=== PATIENT | male | born 1940 | race Caucasian/White ===

== ENCOUNTER 2017-05-06 09:46 | Emergency (ER) | payer MEDICARE ==
[~2017-05-06] VITALS: Ht 177.8 cm; Wt 96.0 kg
[2017-05-06] MEDS ORDERED: GADODIAMIDE PF 287 MG/ML 20 ML VIAL (for RAD MRI) IVCONTRAST ONE (09:47)
[2017-05-06 09:48] VITALS: BP 111/61; PULSE 78; RESP 16; TEMP 98.3; O2SAT 97
[2017-05-06] MEDS ORDERED: ROSU10 PO (10:07)
[2017-05-06] MEDS ORDERED: METO25TA3 PO (10:07)
[2017-05-06] MEDS ORDERED: zyrtec PO (10:07)
[2017-05-06] MEDS ORDERED: SODIUM CHLOR 0.9% 1000 ML INJ 1,000 ML IV SCH (10:45)
[2017-05-06 10:54] LABS: AUTOMATED NEUTROPHIL # 13.3 TH/MM3 (1.8-7.7); BASOPHIL % 0.1 % (0.0-2.0); EOSINOPHIL # 0.1 TH/MM3 (0-0.4); EOSINOPHIL % 0.4 % (0.0-4.0); HEMATOCRIT 46.2 % (39.0-51.0); LYMPH % 2.8 % (9.0-44.0); LYMPHOCYTE # 0.4 TH/MM3 (1.0-4.8); MEAN CELL VOLUME 98.1 FL (80.0-100.0); MEAN CORPUSCULAR HEMOGLOBIN 33.9 PG (27.0-34.0); MEAN CORPUSCULAR HGB CONC 34.5 % (32.0-36.0); MONO % 6.5 % (0.0-8.0); NEUT % 90.2 % (16.0-70.0); PLATELET COUNT 79 TH/MM3 (150-450); RED BLOOD COUNT 4.71 MIL/MM3 (4.50-5.90); RED CELL DISTRIBUTION WIDTH 12.5 % (11.6-17.2); WHITE BLOOD COUNT 14.7 TH/MM3 (4.0-11.0)
[2017-05-06 10:55] LABS: HEMO FLAGS AUTO DIFF
[2017-05-06 11:07] LABS: BLOOD, URINE SMALL (NEG); GLUCOSE,URINE NEG (NEG); KETONE, URINE 10 mg/dL (NEG); MUCUS URINE FEW /lpf (OCC); NITRITE,URINE NEG (NEG); URINE COLOR YELLOW (YELLW/STRAW)
[2017-05-06 11:08] LABS: COMMENT (UR) CULTURE INDICATED; CULTURE IF INDICATED CULTURE INDICATED
[2017-05-06 11:18] LABS: BICARBONATE 20.3 MEQ/L (21.0-32.0); POTASSIUM 4.1 MEQ/L (3.5-5.1)
--- NOTE | 2017-05-06 11:22 | PD ---
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 The patient states he was feeling fine yesterday morning and had a heavy Thanksgiving meal. He states he urinated throughout the night several times. He states this morning he woke up severely weak. Denies any pain anywhere. He denies any shortness of breath and sitting. He does state that when he gets up now he becomes very winded. There is no abdominal pain and there is no diarrhea. He has no dysuria just urinary frequency. PFSH Past Medical History Cancer: Yes (head neck and lung) High Cholesterol: Yes Hypertension: Yes Myocardial Infarction: Yes Influenza Vaccination: No Past Surgical History Tonsillectomy: Yes Other Surgery: Yes (head and neck for cancer) Social History Alcohol Use: Yes (weekly) Tobacco Use: No Substance Use: No Allergies-Medications (Allergen,Severity, Reaction): Coded Allergies: atorvastatin (Verified Allergy, Intermediate, neck itching, 05/06/17) bacitracin (Verified Allergy, Intermediate, rash, 05/06/17) neomycin (Verified Allergy, Intermediate, rash, 05/06/17) polymyxin B (Verified Allergy, Intermediate, rash, 05/06/17) Reported Meds & Prescriptions Reported Meds & Active Scripts [facility] 1 Tab PO HS Crestor (Rosuvastatin Calcium) 10 Mg Tab 10 Mg PO DAILY Metoprolol Tartrate 25 Mg Tab 25 Mg PO BID Review of Systems Except as stated in HPI: all other systems reviewed are Neg General / Constitutional: Positive: Fever HENT: No: Headaches, Neck Pain Cardiovascular: No: Chest Pain or Discomfort, Palpitations Respiratory: Positive: Other, No: Cough, Shortness of Breath Gastrointestinal: Positive: Loss of Appetite, No: Nausea (history of pulmonary fibrosis), Vomiting, Abdominal Pain Genitourinary: Positive: Frequency, No: Dysuria, Incontinence Musculoskeletal: Positive: Weakness, No: Pain Skin: No Rash, No Lesions Neurologic: Positive: Weakness, Change in Mentation (son states that he appears slightly confused.), No: Headache, Incontinence Physical Exam Narrative GENERAL: Well developed well-nourished male in no acute distress. SKIN: Focused skin assessment warm/dry. HEAD: Atraumatic. Normocephalic. EYES: Pupils equal and round. No scleral icterus. No injection or drainage. ENT: No nasal bleeding or discharge. Mucous membranes pink and moist. NECK: Trachea midline. No JVD. CARDIOVASCULAR: Regular rate and rhythm. No murmur appreciated. RESPIRATORY: No accessory muscle use. Clear to auscultation. Breath sounds equal bilaterally. GASTROINTESTINAL: Abdomen soft, non-tender, nondistended. Hepatic and splenic margins not palpable. MUSCULOSKELETAL: No obvious deformities. No clubbing. No cyanosis. No edema. NEUROLOGICAL: Awake and alert. No obvious cranial nerve deficits. Motor grossly within normal limits. Normal speech. PSYCHIATRIC: Appropriate mood and affect; insight and judgment normal. Data Data Last Documented VS Vital Signs Date Time Temp Pulse Resp B/P (MAP) Pulse Ox O2 Delivery O2 Flow Rate FiO2 05/06/17 12:05 87 20 114/63 (80) 97 Room Air 05/06/17 09:48 98.3 Orders Orders Complete Blood Count With Diff (05/06/17 10:31) Basic Metabolic Panel (Bmp) (05/06/17 10:31) Urinalysis - C+S If Indicated (05/06/17 10:36) Chest, Single Ap (05/06/17 10:36) Ct Brain W/O Iv Contrast(Rout) (05/06/17 10:36) Iv Access Insert/Monitor (05/06/17 10:36) Ecg Monitoring (05/06/17 10:36) Oximetry (05/06/17 10:36) Sodium Chlor 0.9% 1000 Ml Inj (Ns 1000 M (05/06/17 10:45) Urine Culture (05/06/17 10:25) Levofloxacin 750 Mg Premix Inj (Levaquin (05/06/17 12:15) Labs Laboratory Tests Test 05/06/17 10:25 White Blood Count 14.7 TH/MM3 Red Blood Count 4.71 MIL/MM3 Hemoglobin 16.0 GM/DL Hematocrit 46.2 % Mean Corpuscular Volume 98.1 FL Mean Corpuscular Hemoglobin 33.9 PG Mean Corpuscular Hemoglobin Concent 34.5 % Red Cell Distribution Width 12.5 % Platelet Count 79 TH/MM3 Mean Platelet Volume 12.0 FL Neutrophils (%) (Auto) 90.2 % Lymphocytes (%) (Auto) 2.8 % Monocytes (%) (Auto) 6.5 % Eosinophils (%) (Auto) 0.4 % Basophils (%) (Auto) 0.1 % Neutrophils # (Auto) 13.3 TH/MM3 Lymphocytes # (Auto) 0.4 TH/MM3 Monocytes # (Auto) 1.0 TH/MM3 Eosinophils # (Auto) 0.1 TH/MM3 Basophils # (Auto) 0.0 TH/MM3 CBC Comment AUTO DIFF Differential Total Cells Counted 100 Neutrophils % (Manual) 72 % Band Neutrophils % 13 % Lymphocytes % 5 % Monocytes % 10 % Neutrophils # (Manual) 12.5 TH/MM3 Differential Comment FINAL DIFF MANUAL Platelet Estimate LOW Platelet Morphology Comment NORMAL Red Cell Morphology Comment NORMAL Urine Color YELLOW Urine Turbidity CLEAR Urine pH 5.0 Urine Specific [place] 1.014 Urine Protein NEG mg/dL Urine Glucose (UA) NEG mg/dL Urine Ketones 10 mg/dL Urine Occult Blood SMALL Urine Nitrite NEG Urine Bilirubin NEG Urine Urobilinogen LESS THAN 2.0 MG/DL Urine Leukocyte Esterase LARGE Urine RBC 2 /hpf Urine WBC 14 /hpf Urine Mucus FEW /lpf Microscopic Urinalysis Comment CULTURE INDICATED Blood Urea Nitrogen 19 MG/DL Creatinine 0.99 MG/DL Random Glucose 145 MG/DL Calcium Level 8.3 MG/DL Sodium Level 134 MEQ/L Potassium Level 4.1 MEQ/L Chloride Level 105 MEQ/L Carbon Dioxide Level 20.3 MEQ/L Anion Gap 9 MEQ/L Estimat Glomerular Filtration Rate 74 ML/MIN [facility] Medical Decision Making Medical Screen Exam Complete: Yes Emergency Medical Condition: Yes Differential Diagnosis UTI versus dehydration versus metabolic derangement Narrative Course 6-year-old male with history of hypertension, hyperlipidemia, presents today with complaints of weakness and frequent urination. The patient's noted to have a UTI. He is also noted to be volume depleted. He's been given 1-1/2 L of IVD fluid. He states he feels back to baseline. His family members who are at the bedside states that he is acting completely normal now. He's been given Levaquin 756 mg I V times one dose. He'll be discharged. A prescription for Levaquin 7506 days has been called into [facility] pharmacy. Diagnosis Primary Impression: Urinary tract infection Additional Impressions: Dehydration History of hypertension History of hyperlipidemia Additional Instructions: Prescription has been called into [facility] in [place]. This prescription is for Levaquin 750 mg daily 6 days. He can start the medication tomorrow on the . Plenty of fluids. Return if feeling worse. Disposition: 01 DISCHARGE HOME Condition: Stable Murray Puckett MD May 06, 2017 11:22
--- NOTE | 2017-05-06 11:23 | RADRPT ---
EXAM DATE/TIME: 05/06/2017 10:54 [facility] COMPARISON: No previous studies available for comparison. INDICATIONS : Patient complains of shortness of breath for two days. 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 ENCOUNTER: Initial ACUITY: 2 days PAIN SCORE: 0/10 LOCATION: Bilateral Chest. FINDINGS: Minimal airspace disease in the left lower lung zone. Cardiomediastinal contours are within normal li mits. Bony thorax is intact. CONCLUSION: 1. Minimal patchy left lower lung zone airspace disease, likely atelectasis. Differential considerati ons include developing pneumonia or aspiration in the appropriate clinical setting. Gallito Reyes MD on May 06, 2017 at 11:20 Board Certified Radiologist. This report was verified electronically.
[2017-05-06 11:27] LABS: BANDS 13 % (0-6); NEUTROPHIL # MANUAL DIFF 12.5 TH/MM3 (1.8-7.7); PLATELET ESTIMATE SMEAR LOW (NORMAL); PLATELET MORPHOLOGY NORMAL (NORMAL); POLYS (SEG NEUTROPHILS) 72 % (16-70); SCAN/DIFF FINAL DIFF MANUAL; WBC DIFF SAMPLE 100
--- NOTE | 2017-05-06 11:45 | RADRPT ---
EXAM DATE/TIME: 05/06/2017 11:23 [facility] COMPARISON: No previous studies available for comparison. INDICATIONS : Generalized weakness, dull headache. RADIATION DOSE: 36.88 CTDIvol (mGy) MEDICAL HISTORY : Carcinoma, lung. Hypertension. SURGICAL HISTORY : None. ENCOUNTER: Initial ACUITY: 2 days PAIN SCALE: 2/10 LOCATION: Bilateral frontal TECHNIQUE: Multiple contiguous axial images were obtained of the head. Using automated exposure control and adj ustment of the mA and/or kV according to patient size, radiation dose was kept as low as reasonably a chievable to obtain optimal diagnostic quality images. DICOM format image data is available electro nically for review and comparison. FINDINGS: CEREBRUM: Small 8mm hyperdensity in the left subinsular region. Mild cerebral volume loss. The ventricles are n ormal for degree of atrophy. No evidence of midline shift, mass lesion, hemorrhage or acute infarcti on. No extra-axial fluid collections are seen. POSTERIOR FOSSA: The cerebellum and brainstem are intact. The 4th ventricle is midline. The cerebellopontine angle i s unremarkable. EXTRACRANIAL: The visualized portion of the orbits is intact. SKULL: The calvaria is intact. No evidence of skull fracture. CONCLUSION: 1. Small 8mm hyperdensity in the left subinsular region which may reflect calcifications. However, sm all hemorrhage cannot be entirely excluded. MRI exam with gradient echo imaging may be performed for further characterization as indicated. Gallito Reyes MD on May 06, 2017 at 11:41 Board Certified Radiologist. This report was verified electronically.
[2017-05-06 12:05] VITALS: BP 114/63; PULSE 87; RESP 20; O2SAT 97
[2017-05-06] MEDS ORDERED: LEVOFLOXACIN 750 MG PREMIX INJ 150 ML IV ONE (12:15)
--- NOTE | 2017-05-06 16:46 | RADRPT ---
EXAM DATE/TIME: 05/06/2017 15:59 [facility] COMPARISON: CT BRAIN W/O CONTRAST, May 06, 2017, 11:23. INDICATIONS : Hemorrhage. CONTRAST: 20 cc Omniscan (gadodiamide) IV MEDICAL HISTORY : None. SURGICAL HISTORY : Bilateral hip ENCOUNTER: Initial ACUITY: 1 day PAIN SCORE: 0/10 LOCATION: cranial TECHNIQUE: Multiplanar, multisequence MRI of the brain was performed both prior to and following the administrat ion of paramagnetic contrast. FINDINGS: CEREBRUM: The ventricles are normal for age. No evidence of midline shift, mass lesion, hemorrhage or acute in farction. The area of high attenuation involving the subinsular cortex on the left on the recent CT s hows no hemorrhage. There is a small focus of decreased signal with a tight cluster of draining veins consistent with a developmental venous anomaly. No blooming artifact on the gradient echo sequence. No extraaxial fluid collections are seen. The pituitary gland and suprasellar cistern are normal in configuration. WHITE MATTER: Extensive periventricular high flair signal involving the periventricular white matter and subcortica l white matter of both cerebral hemispheres POSTERIOR FOSSA: The cerebellum and brainstem are intact. The 4th ventricle is midline. The cerebellopontine angle is unremarkable. The cerebellar tonsils are normal in position. DIFFUSION IMAGING: No focal areas of restricted diffusion are seen. No evidence of acute infarction. EXTRACRANIAL: The visualized portions of the orbits and paranasal sinuses are unremarkable. POST-CONTRAST: No abnormal areas of parenchymal or dural enhancement. No evidence of blood-brain barrier breakdown. CONCLUSION: 1. 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 This correlates to the finding on the recent CT. 2. Extensive chronic small vessel ischemic change. 3. No acute intracranial abnormality. Paramjit Coles Jr., MD on May 06, 2017 at 16:28 Board Certified Radiologist. This report was verified electronically.
[2017-05-06 17:00] VITALS: BP 116/70; PULSE 83; RESP 17; O2SAT 97
[2017-05-07] MEDS ORDERED: CETI10 PO (11:26)
== END 2017-05-06 17:20 | disposition home or self-care (01) ==
LOC: NEPE 09:46
DX: N39.0 Urinary tract infection, site not specified (principal); B96.89 Other specified bacterial agents as the cause of diseases classified elsewhere; E86.0 Dehydration; R53.1 Weakness; I10 Essential (primary) hypertension; E78.5 Hyperlipidemia, unspecified; E78.00 Pure hypercholesterolemia, unspecified; I25.2 Old myocardial infarction; Z79.899 Other long term (current) drug therapy
CPT/HCPCS: 70450; 70553; 71010; 80048; 81001; 85007; 85027; 87086; 96361; 96365; 99285; A9579; J1956; J7030